=== PATIENT | female | born 1935 | race Caucasian/White ===

== ENCOUNTER 2017-03-02 17:21 | Emergency (ER) | payer OTHER, MEDICAID ==
[~2017-03-02] VITALS: Ht 170.2 cm; Wt 99.8 kg
[2017-03-02 17:21] VITALS: BP_SYST 133
--- NOTE | 2017-03-02 17:21 | NUR ---
BIB BLS from [facility]. Placed in room 07. Placed on basic combatant swimmer, blood pressure machine and pulse oximeter. To gown for exam. Side rails up. Report given to CARMEN Reddy.
--- NOTE | 2017-03-02 17:21 | NUR ---
Pt was brought in by BLS from [facility] with increased confusion. Pt states was moved into another room at facility and had gotten frustated and anxious. Pt is able to verbalize that she gets confused because "of the constant moving of rooms." Pt denies fever, nausea/vomiting, or diarrhea. No acute distress noted. No other injuries/complaints per patient or noted.
--- NOTE | 2017-03-02 17:32 | NUR ---
ER Dr. Car at bedside examining patient.
[2017-03-02] MEDS ORDERED: LEVO100T PO (18:03)
[2017-03-02] MEDS ORDERED: DULO60CA41 PO (18:03)
[2017-03-02] MEDS ORDERED: SIMV10TA2 PO (18:03)
[2017-03-02] MEDS ORDERED: CARB-60 PO (18:03)
[2017-03-02] MEDS ORDERED: PRIM250T32 PO (18:03)
[2017-03-02] MEDS ORDERED: DULR10 RC (18:03)
[2017-03-02] MEDS ORDERED: DOCU-144 PO (18:03)
[2017-03-02] MEDS ORDERED: DONE10TA44 PO (18:03)
[2017-03-02] MEDS ORDERED: LOSA50TA3 PO (18:03)
[2017-03-02 18:10] LABS: BASOPHILS % (AUTO) 0.5 % (0.0-2.0); EOSINOPHILS # (AUTO) 0.3 K/uL (0.0-0.4); EOSINOPHILS % (AUTO) 3.7 % (0.0-4.0); HEMATOCRIT 39.8 % (36-48); HEMOGLOBIN 13.2 g/dL (12.0-16.0); LYMPHOCYTES # (AUTO) 3.3 K/uL (1.0-5.5); MEAN CORPUSCULAR HEMOGLOBIN 31 pg (27-31); MEAN CORPUSCULAR HGB CONC 33 % (32-36); MEAN CORPUSCULAR VOLUME 94 fL (79.0-98.0); MONOCYTES # (AUTO) 0.7 K/uL (0.0-1.0); MONOCYTES % (AUTO) 7.9 % (1.7-9.3); NEUTROPHILS # (AUTO) 4.8 K/uL (1.8-7.7); NEUTROPHILS % (AUTO) 51.9 % (40.0-70.0); PLATELET COUNT (AUTO) 319 K/uL (130-430); RED BLOOD CELL COUNT(AUTO) 4.24 MIL/uL (4.2-6.2); RED CELL DISTRIBUTION WIDTH 13.8 % (9.0-15.0); WHITE BLOOD COUNT (AUTO) 9.1 K/uL (4.8-10.8)
[2017-03-02] MEDS ORDERED: ACET325T53 PO (18:15)
[2017-03-02] MEDS ORDERED: NITSL SL (18:15)
[2017-03-02] MEDS ORDERED: GLIP-172 PO (18:15)
[2017-03-02] MEDS ORDERED: LORA-258 PO (18:15)
[2017-03-02] MEDS ORDERED: IBUP-1969 PO (18:15)
[2017-03-02] MEDS ORDERED: INDLA80 PO (18:15)
[2017-03-02] MEDS ORDERED: INSU100V9 SUBCUT (18:15)
[2017-03-02] MEDS ORDERED: TIMO5DRO16 OP (18:15)
[2017-03-02] MEDS ORDERED: ZOLP5TAB2 PO (18:15)
[2017-03-02] MEDS ORDERED: GABA800T PO (18:15)
[2017-03-02] MEDS ORDERED: BRI.2% OP (18:15)
[2017-03-02] MEDS ORDERED: CAT.1 PO (18:15)
[2017-03-02] MEDS ORDERED: SSNOVOLOG SUBCUT (18:15)
[2017-03-02] MEDS ORDERED: HYDR-4100 PO (18:15)
[2017-03-02] MEDS ORDERED: ARTT OP (18:15)
[2017-03-02] MEDS ORDERED: ANT30 PO (18:15)
[2017-03-02] MEDS ORDERED: ASPI-1063 PO (18:15)
--- NOTE | 2017-03-02 18:15 | NUR ---
Medication reconciliation completed with information provided by [facility]. Any prior medication reconciliation on file was reviewed and corrected.
[2017-03-02 18:19] LABS: ANION GAP 9 (5-15); CALCIUM 8.8 mg/dL (8.4-11.0); CHLORIDE 98 mmol/L (98-107); CREATININE 0.72 mg/dL (0.55-1.30); GLUCOSE 385 mg/dL (70-99); POTASSIUM 4.4 mmol/L (3.5-5.1); PROTHROMBIN TIME 10.3 SECS (9.5-12.5); SODIUM SERUM 135 mmol/L (136-145); UREA NITROGEN, BLOOD 13 mg/dL (8-21)
[2017-03-02 18:36] LABS: ALANINE AMINOTRANSFERASE 29 U/L (12-78); ALBUMIN 3.3 g/dL (3.4-4.8); ASPARTATE AMINOTRANSFERASE 20 U/L (10-37); TOTAL BILIRUBIN 0.2 mg/dL (0.0-1.0)
[2017-03-02 18:37] LABS: ALCOHOL, BLOOD < 3 mg/dL (<10)
[2017-03-02 19:06] LABS: FREE T4 (FREE THYROXINE) 1.2 ng/dL (0.6-1.6)
[2017-03-02] MEDS ORDERED: INSULIN NPH 100 UNITS/ML 10 ML VIAL SUBCUT ONE (19:15)
--- NOTE | 2017-03-02 19:30 | NUR ---
Assumed care of patient. Patient AAOx4, able to respond to questions appropriately. Patient denies pain, denies any complaints at this time. No signs of acute distress noted.
--- NOTE | 2017-03-02 19:30 | NUR ---
MD Dr. Car stated patient is medically cleared to go back to home facility. Awaiting transport for patient back home.
[2017-03-02 19:53] LABS: BILIRUBIN,URINE NEGATIVE (NEGATIVE); BLOOD, URINE 1+ (NEGATIVE); CLARITY/URINE SL CLOUDY (CLEAR); COLOR,URINE YELLOW (YELLOW); GLUCOSE,URINE 2+ (NEGATIVE); KETONES,URINE NEGATIVE (NEGATIVE); NITRITE, URINE NEGATIVE (NEGATIVE); PROTEIN URINE 2+ (NEGATIVE); UROBILINOGEN,URINE 0.2 (0.2-1.0)
[2017-03-02 19:54] LABS: LEUKOCYTE ESTERASE ,URINE 3+ (NEGATIVE); RBC,URINE 0-3 /HPF (0-3)
[2017-03-02 19:55] LABS: BACTERIA,URINE MANY /HPF (None Seen); MUCUS,URINE None Seen /LPF (None Seen); WBC,URINE 50-80 /HPF (0-3)
[2017-03-02 19:56] LABS: BARBITURATE, URINE POSITIVE (NEG <=200); BENZODIAZEPINE, URINE POSITIVE (NEG <=150); CANNABINOID, URINE NEGATIVE (NEG <=50); COCAINE, URINE NEGATIVE (NEG <=150); METHAMPHETAMINES SCREEN,URINE NEGATIVE (NEG <=500); OPIATE, URINE POSITIVE (NEG <=100); PHENCYCLIDINE SCREEN,URINE NEGATIVE (NEG <=25); URINE AMPHETAMINE NEGATIVE (NEG <=500); URINE METHADONE NEGATIVE (NEG <=200)
[2017-03-02 19:57] LABS: UR TRICYCLIC ANTIDEPRESSANTS NEGATIVE (NEG <=300); URINE OXYCODONE SCREEN NEGATIVE (NEG <=100); URINE PROPOXYPHENE SCREEN NEGATIVE (NEG <=300)
--- NOTE | 2017-03-02 20:17 | NUR ---
Patient to be transferred back to [facility]. Is being transferred because this is the patient's home facility. Patient or responsible green party has agreed to transfer and signed form. Patient belongings will be sent with patient. Copy of nursing notes, lab reports, EKG, and radiology reports to be sent with patient. Report called to receiving facility. [facility] ambulance service has been called for transfer.
--- NOTE | 2017-03-02 20:43 | NUR ---
[facility] at bedside.
--- NOTE | 2017-03-02 20:45 | NUR ---
Report called to Justin Villa prior to patient leaving [facility].
[2017-03-02 20:46] VITALS: BP_SYST 126
== END 2017-03-02 20:45 | disposition home or self-care (01) ==
LOC: SED 17:21
DX: G30.9 Alzheimer's disease, unspecified (principal); F02.80 Dementia in other diseases classified elsewhere, unspecified severity, without behavioral disturbance, psychotic disturbance, mood disturbance, and anxiety; Z79.899 Other long term (current) drug therapy
CPT/HCPCS: 36415; 70450; 71010; 74000; 80053; 80307; 81000; 82140; 82962; 83605; 83880; 84439; 84484; 85025; 85610; 87040; 87086; 87186; 93005; 96372; 99285; G0482; J1815